=== PATIENT | male | born 1980 | race Caucasian/White ===

== ENCOUNTER → 2021-01-16 | Outpatient (CLI) | payer OTHER | END | disposition home or self-care (01) | LOC: RAD 11:47 | PROVIDERS: ATTEND Internal Medicine Gastroenterology | DX: K59.00 Constipation, unspecified (principal); K92.1 Melena; R19.7 Diarrhea, unspecified; R13.19 Other dysphagia; R14.0 Abdominal distension (gaseous); R12 Heartburn | CPT/HCPCS: 74018 ==